=== PATIENT | male | born 1990 | race Caucasian/White ===

== ENCOUNTER 2024-06-08 08:07 | Emergency (ER) | payer OTHER, SELFPAY ==
[2024-06-08 08:20] VITALS: BP 134/70; PULSE 71; RESP 16; TEMP 36.8; O2SAT 100
--- NOTE | 2024-06-08 08:41 | ED.SKABFB ---
HPI - Skin/Abscess/Foreign Bdy General Chief complaint: Skin/Abscess/Foreign Body Stated complaint: MASS UNDER L ARMPIT Time Seen by Provider: 06/08/24 08:25 Source: patient and RN notes reviewed Mode of arrival: ambulatory Limitations: no limitations History of Present Illness HPI narrative: 33 Year old male who presents to express care here today complaining of a lump under the left armpit. Noticed a lump appeared about 1 week ago. He said he noticed a lump after taking a shower. The lump is painless. He denies any redness, swelling, tenderness, fevers, drainage, or pain with movement. He reports about 2 weeks ago he tested positive for influenza A. He also reports that he was recently starting to lift weights again over the last 2 weeks. He denies any swelling in the right armpit. He also reports some myalgias his chest, shoulder, back from lifting weights recently. Related Data Allergies Allergy/AdvReac Type Severity Reaction Status Date / Time No Known Allergies Allergy Verified 06/08/24 08:30 Review of Systems Review of Systems: CONSTITUTIONAL: Denies fever, chills, or sweats. EYES: Denies visual changes, redness, or discharge. ENT: Denies rhinorrhea, congestion, sore throat, or otalgia. CARDIOVASCULAR: Denies chest pain, palpitations, or edema. RESPIRATORY: Denies cough or dyspnea. GASTROINTESTINAL: Denies abdominal pain, nausea, vomiting, or diarrhea. GENITOURINARY: Denies dysuria or hematuria. SKIN: Denies rash or itching. MUSCULOSKELETAL: Denies back pain, joint pain. Positive for lump and left axilla and myalgias NEUROLOGIC: Denies headache, numbness, or weakness. PSYCHIATRIC: Denies anxiety or depression. All other systems reviewed are negative, except as documented in HPI. PMFSH Comments At the time of my signature, I reviewed and agree with the nursing past medical, surgical, social, and family history. There is no relevant family history pertinent to the patient complaint. Exam Narrative: GENERAL: This is a well-nourished, well-developed patient, in no apparent distress. HEAD: normocephalic, atraumatic. EYES: Sclera clear/white. Vision is grossly intact. SKIN: warm, Dry, intact with no suspicious lesions or rash, good texture and turgor. NEURO: awake, alert, and oriented to person, place and time. There were no obvious focal neurologic abnormalities. EXTREMITIES: left axilla: soft tissue abnormality that is nontender. It is mobile and changes with movement the left arm. There is no redness, swelling, area of fluctuance, or induration. right axilla is unremarkable. Course Course Level of Care: Express Care Visit Vital Signs Vital signs: Vital Signs Temperature 98.2 F 06/08/24 08:20 Pulse Rate 71 06/08/24 08:20 Respiratory Rate 16 06/08/24 08:20 Blood Pressure 134/70 06/08/24 08:20 Pulse Oximetry 100 06/08/24 08:20 Temperature 98.2 F 06/08/24 08:20 Pulse Rate 71 06/08/24 08:20 Respiratory Rate 16 06/08/24 08:20 Blood Pressure 134/70 06/08/24 08:20 Pulse Oximetry 100 06/08/24 08:20 Reviewed MDM - Skin/Abscess/Foreign Bdy MDM Narrative Medical decision making narrative: Symptoms are consistent with musculoskeletal etiology. there is no pain or swelling, redness, drainage of the abnormality. The right axilla was unremarkable. He reported recently gotten over the flu as well. He reports recently starting to lift weights. Recommend he stopped lifting weights until he is evaluated by a primary care physician or orthopedist. He states he does not have a primary care provider, a list of primary care providers were provided along with a referral to an orthopedist. Anticipatory guidance provided. Differential Diagnosis Differential diagnosis: Likely abscess of skin or subcutaneous tissue, cellulitis and other ( Muscle strain) Critical Care Time Critical Care Time Critical Care Time: No Discharge Plan Discharge Clinical Impression: Axillary fullness Patient Disposition: Home, Self-Care Condition: Stable Additional Instructions: Your symptoms are likely from a musculoskeletal issue. Please follow-up with a primary care physician or an orthopedist for further evaluation. You have been provided with an orthopedist on-call. Your blood pressure was elevated above 120/80 today at Urgent Care. This puts you above the threshold for follow up visit with a primary care provider. High blood pressure does not usually cause any symptoms, however it may lead to kidney failure, stroke, heart disease just to name a few if untreated . Many people are anxious when seeing a provider or nurse. As a result, you are not diagnosed with hypertension at this time unless your blood pressure is persistently high at two office visits at least one week apart; therefore it is very important that you follow up with a primary care doctor for further evaluation. Patient Language: Israeli Follow-up/Referrals: Drew Carolina MD [Physician] - PHYSICIAN,PROJECT MANAGER [employer] [Primary Care Provider] - Time of Disposition: 08:55
== END 2024-06-08 08:59 | disposition home or self-care (01) ==
DX: R22.32 Localized swelling, mass and lump, left upper limb (principal)
CPT/HCPCS: 99211; G0463

== ENCOUNTER 2024-09-16 09:48 | Emergency (ER) | payer OTHER, SELFPAY ==
[2024-09-16 09:57] VITALS: BP 102/64; PULSE 75; RESP 20; TEMP 36.5; O2SAT 98
[2024-09-16] MEDS: LIDOCAINE 1% LOCAL INJ 2 ML AMPUL 4 ML INFILTRATE (10:19)
[2024-09-16] MEDS: TETANUS,DIPHTHERIA,AC PERTUSSIS ADULT (0.5 ML) BOOSTRIX IM (10:19)
--- NOTE | 2024-09-16 10:53 | ECG_ITS ---
Test Date: 2024-09-16 11:14:40 Measurements Intervals [place] Rate: 50 P: 39 IN: 164 QRS: 28 QRSD: 104 T: 21 QT: 448 QTc: 412 Interpretive Statements SINUS BRADYCARDIA No previous ECG available for comparison Electronically Signed On 09-16-2024 12:52:59 CDT by Miles Bustos M.D.
--- NOTE | 2024-09-16 10:53 | ED_ITS ---
HPI - Wound/Laceration General Chief Complaint: Wound/Laceration Stated Complaint: Cut Left Hand Time Seen by Provider: 09/16/24 10:00 Source: patient and RN notes reviewed Mode of arrival: ambulatory Limitations: no limitations History of Present Illness HPI narrative: 34-year-old male presents Express Care complaining of laceration to the palm of his left hand. Patient was cutting meat with a steak knife when he accidentally stabbed himself in the left palm. Patient denies any other injuries. After patient stabbed himself immediately went to the sink to wash the wound in the blood off. While he was doing that patient said he became very lightheaded, dizzy, hot, tunnel vision, and felt like he was going to pass out went to sit down and stated that he had a syncopal episode. Patient has not ate or drank anything today. Patient states he feels fine since. Patient denies hitting his head, injuries, or any falls from the episode. Patient denies any chest pain, difficulty breathing, weakness, slurred speech, vision changes, headaches, or facial drooping. Patient reports he has a history of a tendon injury to his left pinky states he is unable to extend it. Patient's tetanus is not today. Related Data Allergies Allergy/AdvReac Type Severity Reaction Status Date / Time No Known Allergies Allergy Verified 09/16/24 10:18 Review of Systems Review of Systems: CONSTITUTIONAL: Denies fever, chills, or sweats. EYES: Denies visual changes, redness, or discharge. ENT: Denies rhinorrhea, congestion, sore throat, or otalgia. CARDIOVASCULAR: Denies chest pain, dizziness, lightheadedness, palpitations, or edema. RESPIRATORY: Denies cough or dyspnea. GASTROINTESTINAL: Denies abdominal pain, nausea, vomiting, or diarrhea. GENITOURINARY: Denies dysuria or hematuria. SKIN: Denies rash or itching. Positive for laceration MUSCULOSKELETAL: Denies back pain, joint pain, or myalgia. NEUROLOGIC: Denies headache, numbness, for focal weakness, slurred speech, facial droop, or weakness. Positive for loss of consciousness. PSYCHIATRIC: Denies anxiety or depression. All other systems reviewed are negative, except as documented in HPI. PMFSH Comments At the time of my signature, I reviewed and agree with the nursing past medical, surgical, social, and family history. There is no relevant family history pertinent to the patient complaint. Exam Narrative: GENERAL: This is a well-nourished, well-developed adult, in no apparent distress. They are non ill-appearing, nontoxic appearing. HEAD: normocephalic, atraumatic. EYES: Sclera clear/white. Conjunctiva normal. Vision is grossly intact. Extraocular movements intact. Pupils PERRLA EARS: External ears normal, Hearing grossly intact. NOSE: External nose normal THROAT: Mucous membranes moist, NECK: Neck supple, non-tender without lymphadenopathy, masses or thyromegaly. CARDIOVASCULAR: Regular rate and rhythm RESPIRATORY: Respiratory rate normal, respiratory effort nonlabored, no respiratory distress SKIN: Left hand: Linear laceration measuring approximately 1 cm just below the 4th finger on the palmar surface of the hand. Laceration approximates well. Hemostasis achieved prior to arrival. Patient is able to make a fist, stop sign, okay sign, thumbs-up sign. Patient is able wiggle his fingers. Normal sensation. Left radial pulse 2 +palpable. Capillary refill less than 2 seconds. Neurovascular status intact distal injury. 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 NEURO: awake, alert, and oriented to person, place and time. There were no obvious focal neurologic abnormalities. EXTREMITIES: No joint tenderness, effusion, or edema noted. Course Course Emergency Course: Portions of this record may have been created with voice recognition software Level of Care: Express Care Visit Vital Signs Vital signs: Vital Signs Temperature 97.7 F 09/16/24 09:57 Pulse Rate 75 09/16/24 09:57 Respiratory Rate 20 09/16/24 09:57 Blood Pressure 102/64 09/16/24 09:57 Pulse Oximetry 98 09/16/24 09:57 Oxygen Delivery Room Air 09/16/24 09:57 Temperature 97.7 F 09/16/24 09:57 Pulse Rate 75 09/16/24 09:57 Respiratory Rate 20 09/16/24 09:57 Blood Pressure 102/64 09/16/24 09:57 Pulse Oximetry 98 09/16/24 09:57 Oxygen Delivery Room Air 09/16/24 09:57 Reviewed Procedures Laceration Laceration 1: Date: 09/16/24 Time: 10:30 Site: hand (palmar surface) Side (If applicable): left Size (cm): 1 Description: linear Local Anesthetic: lidocaine 1% Amount of anesthesia used (mL): 2 Pre-repair: wound explored and irrigated ====== Skin Level ====== Skin layer closed with: nylon Size (cm): 5-0 Number of sutures: 3 Technique: simple, interrupted ====== Subcutaneous Layer ====== ====== Muscle Layer ====== ====== Tendon Layer ====== Dressing: Non adherent applied MDM - Wound/Laceration MDM Narrative Medical decision making narrative: EKG sinus bradycardia with no ischemic findings, no arrhythmia, no heart blocks. Patient's symptoms are consistent with a vasovagal episode today from a stressful event this morning. Patient currently asymptomatic has no injuries from the syncopal episode. Offered patient ER transfer for further evaluation and management of his syncopal episode today and patient declined. Advised patient close follow-up with PCP. Advised patient to drink plenty of fluids today and go eat something. Patient is aware to go to the ER immediately if he has another syncopal episode or develops any chest pain, dizziness, palpitations, severe headaches, vision problems, or any other serious concerns. Successful laceration repair to patient's palm of his left hand. Neurovascular status intact distal to injury. Three sutures were placed. His tetanus is updated today. Will refer patient to a hand specialist if he develops any symptoms to his hand and also to evaluate possible chronic tendon injury to his left pinky. Discussed physical exam findings. Advised supportive measures and signs/symptoms to go to the ER. Pt is appropriate for outpt treatment and f/u. Differential Diagnosis Differential diagnosis: Likely laceration, abrasion and other (Syncope, arrhythmia, heart block, tendon injury) ECG Data EKG #1: ECG completion date: 09/16/24 ECG completion time: 11:14 Prior ECG tracings: not available for review EKG Interpretation: bradycardia, no ectopy, no ST changes, normal QRS and normal QT Critical Care Time Critical Care Time Critical Care Time: No Discharge Plan Discharge Clinical Impression: Laceration, Vasovagal syncope Patient Disposition: Home Condition: Stable Instructions: Antibiotic Form, Care For Your Stitches (DC), Laceration (ED), Syncope (ED) Additional Instructions: Your sutures need to be removed in 10-14 days. ?Wear the dressing that has been applied for the first 24 hours to allow a scab to start forming. ?After this, you may remove and wash as normal with soap and water. ?Do NOT wash with peroxide or alcohol. ?Do NOT apply antibiotic ointment. Do not scrub for soak the wound. Avoid dirty water to the wound is healed. Take tylenol or ibuprofen at home for pain. ?Please take cephalexin as directed. Your EKG shows sinus bradycardia otherwise unremarkable. Please go to the ER if developed any new worsening redness, swelling, green/yellow drainage, pain, red streaking, fevers, syncopal episodes, chest pains, breathing problems, or any other concerns. Please follow-up with a hand specialist if he develops any hand function problems, numbness, tingling, have further evaluation of your chronic pinky injury. Patient Language: Malawian Prescriptions: New cephalexin 500 mg capsule 500 mg PO Q6H 5 Days Qty: 20 0RF Follow-up/Referrals: Sallie Kyle MD [Physician] - PHYSICIAN,MANAGER IMAGING [Primary Care Provider] - Time of Disposition: 11:04
--- NOTE | 2024-09-16 12:19 | PC.NURSE ---
1100- while MODELING TEACHER was suturing pt and they were all talking, pt states that at home while he was looking at hand and saw his own blood he felt lightheaded and passed out and pt states he feels fine now. MODELING TEACHER stated he would like to get an ekg performed just to make sure everything looked out since he most likely just had a vagal episode but he would like to just do this test to make sure. pt verbalized understanding.
== END 2024-09-16 11:17 | disposition home or self-care (01) ==
DX: S61.412A Laceration without foreign body of left hand, initial encounter (principal); W26.0XXA Contact with knife, initial encounter; R55 Syncope and collapse; Z23 Encounter for immunization
CPT/HCPCS: 12001; 90471; 90715; 93005; 99213; G0463; J2003